=== PATIENT | male | born 1995 | race Caucasian/White ===

== ENCOUNTER 2016-08-21 20:00 | Inpatient (IN) | payer BC ==
--- NOTE | ~2016-08-21 | HP ---
Unit #: [id number] #: [id number] Patient: CHIDI GARCIA [id number] [place] [address] [id number] MR#: [id number] NAME: CHIDI GARCIA ROOM: P171 Age: 20 Sex: M Admission Date: 08/22/2016 : 1995 Attending Physician: Aristeo Coyle M.D. Admitting Physician: Aristeo Coyle M.D. Primary Care Physician: Primary Care Physician No HISTORY AND PHYSICAL HISTORY OF PRESENT ILLNESS Chidi is a 20-year-old male admitted on 08/22/[address] [facility] for detox from heroin, Xanax and marijuana. PAST MEDICAL HISTORY None. PAST SURGICAL HISTORY None. SOCIAL HISTORY Has a history of tobacco use, occasional social alcohol use and daily use of Xanax and heroin. He is currently single and living with his mother. FAMILY HISTORY Noncontributory. REVIEW OF SYSTEMS CONSTITUTIONAL: No fever or chills. HEENT: Denies any sore throat, ear pain or runny nose. CARDIOVASCULAR: Denies chest pain, irregular heart rhythm or palpitations. CHEST: Denies shortness of breath or cough. No hemoptysis. GASTROINTESTINAL: Denies nausea, vomiting, diarrhea or chronic constipation. ENDOCRINE: Denies history of increased thirst or urination. No recent significant weight loss or gain. GENITOURINARY: Denies dysuria, frequency, or hematuria. SKIN: Denies any rashes. HEMATOLOGIC: Denies history of increased bleeding or bruising. MUSCULOSKELETAL: Denies any hot, swollen joints. No generalized muscle pain. NEUROLOGIC: Denies problems with vision or speech. No frequent, severe headaches. No numbness, tingling or weakness in any extremities. Denies loss of bladder or bowel control. CURRENT MEDICATIONS None. ALLERGIES None. PHYSICAL EXAMINATION GENERAL: Alert, oriented, in no acute distress. Unit #: [id number] #: [id number] Patient: CHIDI GARCIA VITAL SIGNS: Blood pressure 117/89, heart rate 64, temperature 98.2, respirations 18. HEIGHT: 5 foot 11 inches. WEIGHT: 160 pounds. SKIN: Warm and dry without rash or lesion. HEENT: Normocephalic. TMs not viewed. Oral and nasal passages clear. Conjunctivae clear. PERRLA. EOMs intact. NECK: Supple without lymphadenopathy or thyromegaly. HEART: Regular rate and rhythm without murmur. LUNGS: Clear. ABDOMEN: Soft, nontender, without masses or hepatosplenomegaly. : Not done. EXTREMITIES: No evidence of cyanosis, clubbing or edema. Moves all without focal deficit. NEUROLOGICAL: Grossly within normal limits. Cranial Nerves: II: Visual salgado are intact. III, IV AND : Extraocular movements are intact. Pupils are equal, round and reactive to light. V: Facial sensation is grossly normal. VII: Facial movements and expression are normal. VIII: Auditory acuity grossly intact. IX, X: Uvula is midline. Phonation is normal. XI: Patient shrugs shoulders and turns head normally. XII: Tongue protrudes in the midline. Sensory and Motor Function: Sensory and motor sensation is grossly normal. Motor: moves all extremities well. Coordination: Gait is normal. Deep Tendon Reflexes: Intact. IMPRESSION Psychiatric admission. RECOMMENDATIONS Psychiatric, per psychiatrist. MEDICAL: I see no contraindications to participating in facility's activities. MEDICAL PROGNOSIS Good. MEDICAL CONDITION Stable. Dictated by... Annette Upton TD: 08/22/2016 22:15 JOB #: [id number] Unit #: [id number] #: [id number] Patient: CHIDI GARCIA HISTORY AND PHYSICAL Page 1 of 1 X TORIN SAUCEDO APRN HISTORY AND PHYSICAL
--- NOTE | ~2016-08-21 | DS ---
Unit #: [id number] #: [id number] Patient: CHIDI GARCIA [id number] [facility] [address] [place] [address] [id number] MR#: [id number] NAME: CHIDI GARCIA ROOM: P171 Age: 20 Sex: M Admission Date: 08/22/2016 : 1995 Discharge Date: 08/24/2016 Attending Physician: Aristeo Coyle M.D. DISCHARGE SUMMARY REASON FOR ADMISSION The patient is a 20-year-old single white male, admitted following unintentional overdose of heroin. HOSPITAL COURSE The patient was admitted to the [facility] unit and placed on routine detoxification protocol for opioids and benzodiazepines. He was pleasant and cooperative, and contrite over the ensuing hospitalization. He expressed no suicidal ideation and vehemently denied that his overdose had been intentional. By 08/24/2016, the patient's detox was complete. He was agreeable to plan for followup through the auspices of the [facility] in [place], [place] and as per his request, discharge was ordered. FINAL DIAGNOSES Opioid use disorder; sedative hypnotic use disorder. DISPOSITION ON DISCHARGE The patient is discharged on no psychotropic or other medications. FOLLOWUP Followup will take place through the auspices of the [facility] in [place], [place] in the intensive outpatient chemical dependency program there. PROGNOSIS The patient's prognosis is considered fair, given his degree of support and motivation for change. Dictated by... Aristeo Coyle M.D. CB/kristil TD: 08/24/2016 16:32 JOB #: [id number] Unit #: [id number] #: [id number] Patient: CHIDI GARCIA DISCHARGE SUMMARY Page 1 of 1 X Aristeo Coyle MD X DISCHARGE SUMMARY
--- NOTE | ~2016-08-21 | PA ---
Unit #: [id number] #: [id number] Patient: CHIDI GARCIA [id number] [place] [address] [id number] MR#: [id number] NAME: CHIDI GARCIA ROOM: P171 Age: 20 Sex: M Admission Date: 08/22/2016 : 1995 Date of Assessment: 08/22/2016 Attending Physician: Aristeo Coyle M.D. Admitting Physician: Aristeo Coyle M.D. Primary Care Physician: Primary Care Physician No PSYCHIATRIC ASSESSMENT IDENTIFYING INFORMATION The patient is a 20-year-old white male brought to [facility] in [place] by his parents following a recent heroin overdose. CHIEF COMPLAINT "This is my second overdose." INFORMANT(S) Patient, liability is good. HISTORY OF PRESENT ILLNESS The patient is a 20-year-old white male who has overdosed twice in the past 2 weeks unintentionally on heroin and benzodiazepines. The patient denies that this was a suicide attempt but was found by parents and taken to [facility]. The patient's parents have expressed great concerns regarding their son's safety. On admission, the patient's COWS score was a 16, his CIWA score an 18. The patient also reports a previous overdose earlier this year. The patient reports no current suicidal or homicidal ideation. He denies prior psychiatric or chemical dependence treatment and is on no psychotropic medication. He denies recent changes in sleep or appetite. The patient attends [employer] and works at [employer]. He lives with his parents. PAST PSYCHIATRIC HISTORY None. PAST MEDICAL HISTORY Noncontributory. MEDICATIONS None. ALLERGIES None. FAMILY HISTORY Noncontributory. SOCIAL HISTORY The patient lives with his parents. He is attending college and works at [employer]. SUBSTANCE ABUSE HISTORY Unit #: [id number] #: [id number] Patient: CHIDI GARCIA As noted previously. He also admits to abuse of cannabis. He reports no history of intravenous drug use. He has never , and has no children, and does not smoke cigarettes. MENTAL STATUS EXAMINATION Examination at this time reveals the patient to be a well-developed well-nourished white male appearing stated age. He is in no apparent physical distress at the time of examination. He is awake, alert, and oriented in all spheres. His mood is mildly dysphoric, his affect congruent. Speech is generally well-coherent. There are no gross deficits in memory or cognition noted. Intelligence is judged to be in the average range based on fund of knowledge. The patient is cooperative throughout the interview. He is currently denying suicidal or homicidal ideation or psychotic features. Judgment and insight appear to be intact. ASSETS AND LIABILITIES The patient's assets: Motivation for change. Liabilities: Lack of resources. DIAGNOSTIC IMPRESSION 1. Opioid use disorder. 2. Sedative-hypnotic use disorder. TREATMENT PLAN The patient remains hospitalized for safety and stabilization. Routine detoxification protocol for both sedative-hypnotics and opioids have been initiated. The patient will participate in garnica and milieu activities, and I will ask the patient's social sciences chair to discuss postdischarge treatment options with him. ESTIMATED LENGTH OF STAY 5 to 7 days with followup to take place through the auspices of community mental health resources in the [facility]. Dictated by... Aristeo Coyle M.D. [place] TD: 08/22/2016 14:34 JOB #: [id number] PSYCHIATRIC ASSESSMENT Page 1 of 1 X Aristeo Coyle MD X PSYCHIATRIC ASSESSMENT
--- NOTE | ~2016-08-21 | PN ---
Unit #: [id number] #: [id number] Patient: CHIDI GARCIA [id number] [facility] [address] [place] [address] [id number] MR#: [id number] NAME: CHIDI GARCIA ROOM: P171 Age: 20 Sex: M Admission Date: 08/22/2016 : 1995 Attending Physician: Aristeo Coyle M.D. Admitting Physician: Aristeo Coyle M.D. Primary Care Physician: Primary Care Physician Alivia STYLES PROGRESS NOTES DATE 08/23/2016 DISCUSSION The patient exhibits no signs or symptoms of withdrawal and is pleasant and cooperative in his interactions with peers and staff. He has been active within the therapeutic milieu and expressing interest in the intensive outpatient program at [facility]. Should he sustain progress, discharge will likely take place tomorrow. Dictated by... Aristeo Coyle M.D. CB/nicholas TD: 08/23/2016 22:27 JOB #: [id number] [facility] PROGRESS NOTES Page 1 of 1 X Aristeo Coyle MD PROGRESS NOTE
[2016-08-22 09:58] LABS: BASOPHIL% 0.2 % (0-2.5); EOSINOPHIL# 0.2 X10e3 (0-0.7); EOSINOPHIL% 2.9 % (0.0-7.0); HEMATOCRIT 41.9 % (38.0-50.0); HEMOGLOBIN 14.2 gm/dL (13.0-16.0); LYMPHOCYTE% 28.9 % (17.0-45.0); MEAN CELL VOLUME 95.5 FL (83-96); MEAN CORPUSCULAR HEMOGLOBIN 32.3 PG (28-34); MEAN CORPUSCULAR HGB CONC 33.8 g/dL (30-36); MEAN PLATELET VOLUME 8.9 FL (6.5-11.5); MONOCYTE# 0.7 X10e3 (0-1.0); MONOCYTE% 10.1 % (3.0-12.0); NEUTROPHIL% 57.9 % (40-75); PLATELET COUNT 162 X10e3 (140-420); RED BLOOD COUNT 4.38 X10e (3.90-5.60); RED CELL DISTRIBUTION WIDTH 12.5 % (11.0-15.5); WHITE BLOOD COUNT 6.9 X10e3 (4.0-10.5)
[2016-08-22 10:17] LABS: ALBUMIN SERUM 4.4 g/dL (3.5-5.0); BILIRUBIN,TOTAL 0.5 mg/dL (0.2-2.0); BUN/CREATININE RATIO 22.5; CALCIUM SERUM 9.4 mg/dL (8.4-10.2); CREATININE SERUM 0.8 mg/dL (0.6-1.4); GLOM FILT RATE Estimated 128.6 mL/min (>60); POTASSIUM 4.6 mmol/L (3.5-5.1); PROTEIN TOTAL SERUM 6.6 g/dL (6.0-8.3)
[2016-08-22 10:35] LABS: DIFF IND NO
[2016-08-22 11:41] LABS: THYROID STIMULATING HORMONE 2.14 uIU/ml (0.34-5.60)
[2016-08-22 11:48] LABS: FREE THYROXIN (T4) 1.01 ng/dL (0.58-1.64)
[2016-08-23 10:06] LABS: URINE APPEARANCE CLOUDY; URINE BILIRUBIN NEG (NEG); URINE BLOOD NEG (NEG); URINE COLOR YELLOW; URINE GLUCOSE NEG (NEG); URINE KETONE NEG (NEG); URINE LEUKOCYTE ESTERASE NEG (NEG); URINE NITRATE NEG (NEG); URINE PH 7.5 (5-8); URINE PROTEIN NEG (NEG); URINE SPECIFIC GRAVITY 1.016 (1.003-1.035); URINE UROBILINOGEN 0.2 MG/DL (NEG)
[2016-08-23 10:46] LABS: AMPHETAMINE NEG (NEG); BARBITURATES NEG (NEG); BENZODIAZEPINES NEG (NEG); COCAINE NEG (NEG); MARIJUANA POS (NEG); OPIATES POS (NEG); TRICYCLIC ANTIDEPRESSANTS NEG (NEG); U METHADONE NEG (NEG)
== END 2016-08-24 13:00 | disposition home or self-care (01) | DRG 897 ==
LOC: P1E 08-22 01:39
PROVIDERS: Specialist
PROC: HZ2ZZZZ Detoxification Services for Substance Abuse Treatment (ICD-10-PCS; principal; 2016-08-22)
DX: F11.20 Opioid dependence, uncomplicated (principal); F13.20 Sedative, hypnotic or anxiolytic dependence, uncomplicated; F17.210 Nicotine dependence, cigarettes, uncomplicated; T40.1X1D Poisoning by heroin, accidental (unintentional), subsequent encounter
CPT/HCPCS: 80053; 80307; 81003; 84439; 84443; 85025